=== PATIENT | male | born 1980 | race Two or more races ===

== ENCOUNTER 2018-07-19 16:39 | Emergency (ER) | payer BC ==
[~2018-07-19] VITALS: Ht 160 cm; Wt 63.5 kg
[2018-07-19 16:45] VITALS: BP 107/82
[2018-07-19] MEDS ORDERED: ACETAMINOPHEN 500 MG TAB PO ONE (17:00)
[2018-07-19 17:22] LABS: Urine Bacteria NONE SEEN /hpf (None Seen); Urine Blood Negative /uL (Negative); Urine Specific Gravity 1.011 (1.001-1.035); Urine WBC <1 /hpf (0 - 3)
[2018-07-19] MEDS ORDERED: PENICILLIN G BENZ 1200000 UNITS/2 ML SYRG IM ONE (18:45)
[2018-07-21 07:05] LABS: RPR Non Reactive (Non Reactive)
== END 2018-07-19 19:20 | disposition home or self-care (01) ==
LOC: ER 16:56
DX: A51.0 Primary genital syphilis (principal); K12.0 Recurrent oral aphthae
CPT/HCPCS: 81001; 86592; 96372; 99283; J0561

== ENCOUNTER 2018-07-26 18:31 | Emergency (ER) | payer BC ==
[~2018-07-26] VITALS: Ht 160 cm; Wt 63.5 kg
[2018-07-26 20:29] VITALS: BP 125/65
== END 2018-07-26 20:47 | disposition home or self-care (01) ==
LOC: ER 18:31
DX: L56.8 Other specified acute skin changes due to ultraviolet radiation (principal); T50.905A Adverse effect of unspecified drugs, medicaments and biological substances, initial encounter; Y92.89 Other specified places as the place of occurrence of the external cause

== ENCOUNTER 2018-09-04 09:02 | Emergency (ER) | payer BC ==
[~2018-09-04] VITALS: Ht 160 cm; Wt 63.5 kg
[2018-09-04 09:10] VITALS: BP 113/72
[2018-09-04] MEDS ORDERED: cefTRIAXone SOD 1,000 MG VL IM ONE (09:45)
[2018-09-04] MEDS ORDERED: methylPREDNISolone SOD SUCC 125 MG/2 ML VL IM ONE (09:45)
[2018-09-04] MEDS ORDERED: LIDOCAINE W/ EPINEPHRINE 1 % INJ 30ML ONE (09:47)
== END 2018-09-04 10:00 | disposition home or self-care (01) ==
LOC: ER 09:02
DX: J03.90 Acute tonsillitis, unspecified (principal)
CPT/HCPCS: 87880; 96372; 99283; J0696; J2001; J2930

== ENCOUNTER 2022-09-04 05:12 | Emergency (ER) | payer BC ==
[~2022-09-04] VITALS: Ht 172.7 cm; Wt 64.4 kg
[2022-09-04 08:35] VITALS: BP 110/74
== END 2022-09-04 08:51 | disposition home or self-care (01) ==
LOC: ER 05:12
DX: R23.8 Other skin changes (principal)

== ENCOUNTER 2022-09-08 09:26 | Emergency (ER) | payer BC ==
[~2022-09-08] VITALS: Ht 165.1 cm; Wt 64.4 kg
[2022-09-08 09:40] VITALS: BP 112/71
[2022-09-08] MEDS ORDERED: IBUP600T27 PO (10:05)
[2022-09-08] MEDS ORDERED: BACDST PO (10:05)
== END 2022-09-08 10:35 | disposition home or self-care (01) ==
LOC: ER 09:26
DX: S30.860A Insect bite (nonvenomous) of lower back and pelvis, initial encounter (principal); W57.XXXA Bitten or stung by nonvenomous insect and other nonvenomous arthropods, initial encounter; Y93.89 Activity, other specified; Y92.89 Other specified places as the place of occurrence of the external cause; Y99.8 Other external cause status